=== PATIENT | female | born 1995 | race Caucasian/White ===

== ENCOUNTER 2019-03-31 01:55 | Inpatient (IN) | payer OTHER ==
[2019-03-31] MEDS ORDERED: AMPICILLIN SODIUM 2 GM VIAL ONE (05:41)
[2019-03-31] MEDS ORDERED: AMPICILLIN - 2 GM in SODIUM CHLORIDE 100 ML IVPB STA (05:45)
[2019-03-31 06:23] LABS: BASO % 0.1 % (0-2.0); EOS % 0.5 % (0-4.5); HEMATOCRIT 35.7 % (32.4-45.2); LYMPH % 10.8 % (8-40); MCH 27.6 pg (25.7-33.7); MCHC 33.6 g/dl (32.0-36.0); MEAN CELL VOLUME 82.4 fl (80-96); MONO % 4.3 % (3.8-10.2); NEUT % 84.3 % (42.8-82.8); PLATELET COUNT 235 K/MM3 (134-434); RBC 4.33 M/mm3 (3.60-5.2); RDW 14.8 % (11.6-15.6); WHITE BLOOD COUNT 12.1 K/mm3 (4.0-10.0)
[2019-03-31 06:34] LABS: INR 0.92 (0.83-1.09); PROTHROMBIN TIME (PATIENT) 10.9 SEC (9.7-13.0)
[2019-03-31 06:37] LABS: ACTIVATED PTT 28.6 SECONDS (25.2-36.5)
[2019-03-31 06:42] VITALS: BMI 30.1
[2019-03-31] MEDS ORDERED: ELECTROLYTE-148 SOLN 500 ML IV ONE (06:45)
[2019-03-31] MEDS ORDERED: LIDOCAINE HCL 1% PRESERVATIVE FREE - 30ML VIAL ONE (07:10)
[2019-03-31] MEDS ORDERED: OXYTOCIN 20 UNITS in 0.9% NS 20 UNIT/1,000 ML INFUS.BAG IV ONE ×2 (07:11→10:45)
[2019-03-31 07:15] LABS: BLOOD UREA NITROGEN 11.6 mg/dL (7-18); CALCIUM 8.8 mg/dL (8.5-10.1); CREATININE 0.5 mg/dL (0.55-1.3); POTASSIUM 3.9 mmol/L (3.5-5.1)
[2019-03-31] MEDS ORDERED: ELECTROLYTE-148 SOLN 1,000 ML IV SCH (07:45)
[2019-03-31] MEDS ORDERED: FENTANYL/BUPIVACAINE/NS/PF - PCEA - 50 ML DISP.SYRIN EP ONE (08:00)
[2019-03-31] MEDS ORDERED: NALOXONE HCL 0.4 MG/ML VIAL IVPUSH PRN (08:03)
--- NOTE | 2019-03-31 08:04 | HP ---
Past Medical History - Admission History of Present Illness: 24 yo @ 39 1/7 wks by first trimester ultrasound, EDC 04/06/2019 complicated by: 1. Obesity - Starting BMI 32 21 lb wt gain this No early GCT 1 H GCT 137 --> 3 H GTT WNL Most recent EFW: 03/10/2019 (36 wks), 6 lb 9 oz 62%ile (2989g) Patient presents with chief complaint of contractions. She reports movement, denies leakage of fluid, vaginal bleeding. History Source: Patient Limitations to Obtaining History: No Limitations - Past Medical History Cardiovascular: No: HTN Pulmonary: No: Asthma ...: 2 ...Para: 1 ...Term: 1 ...: 0 ...Spon : 0 ...Induced : 0 ...LMP: 06/25/18 ... Weeks Gestation by Dates: 39.6 ...EDC by Dates: 04/01/19 ...EDC by Sono: 04/01/19 Heme/Onc: No: Anemia - Past Surgical History Past Surgical History: Yes: None Hx Myomectomy: No Hx Transabdominal Cerclage: No - Smoking History Smoking history: Never smoked Have you smoked in the past 12 months: No - Alcohol/Substance Use Hx Alcohol Use: No History of Substance Use: reports: None - Social History ADL: Independent History of Recent Travel: No Home Medications - Allergies Allergies/Adverse Reactions: Allergies Allergy/AdvReac Type Severity Reaction Status Date / Time No Known Allergies Allergy Verified 03/31/19 04:04 - Home Medications Home Medications: Ambulatory Orders Pnv No.95/Ferrous Fum/Folic AC [ Vitamin Tablet] 1 each PO DAILY Family Medical History Family History: Denies Review of Systems - Review of Systems Constitutional: reports: No Symptoms Cardiovascular: reports: No Symptoms Respiratory: reports: No Symptoms Genitourinary: reports: No Symptoms Integumentary: reports: No Symptoms Endocrine: reports: No Symptoms Psychiatric: reports: No Symptoms Physical Exam - Maternity Vital Signs: Vital Signs Temperature 97.9 F 03/31/19 06:00 Pulse Rate 81 03/31/19 06:00 Respiratory Rate 20 03/31/19 06:00 Blood Pressure 138/76 03/31/19 06:00 O2 Sat by Pulse Oximetry (%) Constitutional: Yes: Well Nourished, No Distress, Calm Cardiovascular: Yes: Regular Rate and Rhythm Lungs: Clear to auscultation - Abdominal Exam/OB Number of Fetuses: Single Presentation: Vertex Contractions: Yes Regularity: Regular Intensity: Strong Heart Rate (range): 130 Category: I Accelerations: Non-Uniform Decelerations: None - Vaginal Exam/OB Dilatation (cm): 9 Effacement (%): 100 Amniotic Membrane Status: Ruptured Amniotic Fluid: Yes: Clear Station: -1 - Physical Exam Musculoskeletal: Yes: WNL Edema: No Psychiatric: Yes: Alert, Oriented - Labs Lab Results: CBC, BMP 03/31/19 05:40 03/31/19 05:40 PNL: B positive, antibody negative; RPR NR; HIV neg; HBs Ag neg; HCV neg; Hg Carly AA; Quad Screen WNL; Inheritest neg (05/2017); GCT/GTT as above; GBS positive Hemorrhage Risk Assessment - Risk Factors Medium Risk Factors: Yes: None High Risk Factors: Yes: None Risk Score: 1 Risk Level: Medium Risk Assessment/Plan 24 yo @ 39 + wks active labor 1. Admit to L&D 2. Routine labs collected and sent 3. GBS positive, on ampicillin per protocol 4. Will offer pain medication upon patient request 5. Will proceed with expected management
[2019-03-31] MEDS ORDERED: LIDO 2%/EPI 1:200000 PRESRVFRE (20 ML SDVIAL) ONE (08:05)
[2019-03-31] MEDS ORDERED: FENTANYL/BUPIVACAINE/NS/PF - PCEA - 50 ML DISP.SYRIN EP SCH (08:15)
[2019-03-31] MEDS ORDERED: AMPICILLIN SODIUM 1 GM VIAL ONE (08:34)
[2019-03-31] MEDS: AMPICILLIN - 1 GM in SODIUM CHLORIDE 100 ML IVPB SCH ×2 (08:56→13:56)
[2019-03-31] MEDS ORDERED: ACETAMINOPHEN 325 MG TABLET (FP) PO PRN (09:57)
[2019-03-31] MEDS ORDERED: METHYLERGONOVINE MALEATE 0.2 MG/1 ML AMP IM PRN (09:57)
[2019-03-31] MEDS ORDERED: BISACODYL 10 MG SUPP.RECT RC PRN (09:57)
[2019-03-31] MEDS ORDERED: BENZOCAINE 28 GM HEMORRHOIDAL OINTMENT TP PRN (09:57)
[2019-03-31] MEDS ORDERED: WITCH HAZEL 50% (TUCKS) 40 PAD/JAR PAD TP PRN (09:57)
[2019-03-31] MEDS ORDERED: BENZOCAINE 20% 57 GM BOTTLE TP PRN (09:57)
[2019-03-31] MEDS ORDERED: OXYTOCIN 20 UNITS in 0.9% NS 20 UNIT/1,000 ML INFUS.BAG IV SCH (10:00)
--- NOTE | 2019-03-31 10:00 | PN ---
Delivery - Delivery Vaginal Delivery: No Problems Type of Anesthesia: Epidural Episiotomy/Laceration: None EBL (cc): 500 Delivery, Single - Stages of Labor Date 1st Stage Initiatied: 03/30/19 Time 1st Stage Initiated: 22:00 Date 2nd Stage Initiated: 03/31/19 Time 2nd Stage Initiated: 09:08 Date of Delivery: 03/31/19 Time of Delivery: 09:20 Date Placenta Delivered: 03/31/19 Time Placenta Delivered: 09:25 Placenta: Yes: Spontaneous - Condition of Infant Gender: Female Position: Left, OA Total Hours ROM (Hrs/Mins): 1 hour 35 minutes - 1 Minute Total Score: 9 5 Minutes Total Score: 9 - Feeding Plan Initial Plan: Exclusive throughout hospitalization Remarks - Remarks Remarks: Patient progressed to fully dilated and at 0920 via delivered a viable female in STUART position, APGARs 9,9. Weight and length unknown at this time. Head delivered spontaneously followed by shoulders and body without difficulty. with spontaneous cry and placed on mother's abdomen. Nose and mouth was bulb suctioned. Cord was clamped and cut. Perineum and vagina examined, no lacerations noted. Mild atony noted, methergine given IM x 1 Placenta was delivered spontaneously and intact. 20 units of pitocin in 1 L IVF was given. All counts correct x 2. Mother and infant stable in LDR. EBL 500cc.
[2019-03-31] MEDS: PRENATAL VITAMINS W/ FOLIC ACID TABLET (FP) PO SCH (13:55)
[2019-03-31] MEDS: IBUPROFEN 600 MG TABLET (FP) PO PRN (18:00)
--- NOTE | 2019-04-01 08:10 | PN ---
Post Progress Note - Subjective Subjective: Patient without acute complaints. Reports tolerating oral intake without nausea or vomiting. Ambulating without dizziness. Denies fevers or chills. Pain well controlled with oral pain medication. without difficulty. Passing flatus. Post Day: 1 Type of Delivery: Vital Signs: Vital Signs Temperature 97.9 F 04/01/19 06:00 Pulse Rate 65 04/01/19 06:00 Respiratory Rate 20 04/01/19 06:00 Blood Pressure 119/60 04/01/19 06:00 O2 Sat by Pulse Oximetry (%) 100 03/31/19 11:30 Breast Exam: Yes: Soft Uterus: Yes: Fundus Firm, Fundus below umbilicus Abdomen/GI: Yes: Abdomen soft, Passing flatus, Tolerating PO. No: Abdominal Distention, Tender Lochia: Yes: Rubra Lochia, amount: Small Extremities: Yes: Calves non-tender, Edema (trace) Perineum: Yes: Intact Activity: Ambulating - Labs Labs: CBC WBC 12.1 K/mm3 (4.0-10.0) H 03/31/19 05:40 RBC 4.33 M/mm3 (3.60-5.2) 03/31/19 05:40 Hgb 12.0 GM/dL (10.7-15.3) 03/31/19 05:40 Hct 35.7 % (32.4-45.2) D 03/31/19 05:40 MCV 82.4 fl (80-96) 03/31/19 05:40 MCH 27.6 pg (25.7-33.7) 03/31/19 05:40 MCHC 33.6 g/dl (32.0-36.0) 03/31/19 05:40 RDW 14.8 % (11.6-15.6) 03/31/19 05:40 Plt Count 235 K/MM3 (134-434) D 03/31/19 05:40 MPV 9.0 fl (7.5-11.1) 03/31/19 05:40 Absolute Neuts (auto) 10.2 K/mm3 (1.5-8.0) H 03/31/19 05:40 Neutrophils % 84.3 % (42.8-82.8) H 03/31/19 05:40 Lymphocytes % 10.8 % (8-40) D 03/31/19 05:40 Monocytes % 4.3 % (3.8-10.2) 03/31/19 05:40 Eosinophils % 0.5 % (0-4.5) 03/31/19 05:40 Basophils % 0.1 % (0-2.0) 03/31/19 05:40 Nucleated RBC % 0 % (0-0) 03/31/19 05:40 Assessment/Plan 24 yo PPD # 1 s/p , afebrile, vital signs stable, doing well 1. Continue routine care. 2. Follow up AM CBC 3. Rh positive status, no rhogam indicated. 4. Encourage ambulation 5. Continue oral pain medication 6. Anticipate discharge home day #2
[2019-04-01 08:36] LABS: BASO % 0.3 % (0-2.0); EOS % 1.3 % (0-4.5); HEMATOCRIT 29.1 % (32.4-45.2); HEMOGLOBIN 9.9 GM/dL (10.7-15.3); LYMPH % 18.5 % (8-40); MCH 28.2 pg (25.7-33.7); MCHC 33.9 g/dl (32.0-36.0); MEAN CELL VOLUME 83.2 fl (80-96); MEAN PLT VOLUME 9.2 fl (7.5-11.1); MONO % 5.9 % (3.8-10.2); PLATELET COUNT 211 K/MM3 (134-434); RDW 14.4 % (11.6-15.6)
[2019-04-01] MEDS: PRENATAL VITAMINS W/ FOLIC ACID TABLET (FP) PO SCH (10:00)
[2019-04-01] MEDS: IBUPROFEN 600 MG TABLET (FP) PO PRN (15:29)
[2019-04-01] MEDS ORDERED: SENNOSIDES/DOCUSATE COMBO (SENNA PLUS) TABLET (UD) PO PRN (22:00)
[2019-04-02] MEDS: PRENATAL VITAMINS W/ FOLIC ACID TABLET (FP) PO SCH (10:21)
[2019-04-02 10:25] VITALS: BP 125/67; PULSE 78; TEMP 97.9
--- NOTE | 2019-04-02 13:07 | DS ---
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 Vital Signs: Vital Signs Temperature 97.9 F 04/02/19 10:00 Pulse Rate 78 04/02/19 10:00 Respiratory Rate 18 04/02/19 10:00 Blood Pressure 125/67 04/02/19 10:00 O2 Sat by Pulse Oximetry (%) 100 03/31/19 11:30 Constitutional: Yes: Well Nourished, No Distress, Calm Eyes: Yes: WNL, Conjunctiva Clear HENT: Yes: WNL, Atraumatic Neck: Yes: WNL, Supple Cardiovascular: Yes: WNL, Regular Rate and Rhythm Respiratory: Yes: WNL, Regular, CTA Bilaterally Gastrointestinal: Yes: WNL, Normal Bowel Sounds Renal/: Yes: WNL Pelvis: Yes: WNL External Genitalia: Yes: Normal ....Post : Yes: Uterus firm, Uterus non-tender Breast(s): Yes: WNL Musculoskeletal: Yes: WNL Extremities: Yes: WNL Integumentary: Yes: WNL Neurological: Yes: WNL, Alert, Oriented ...Motor Strength: WNL Psychiatric: Yes: WNL, Alert, Oriented Labs: CBC, BMP 04/01/19 08:05 03/31/19 05:40 Delivery - Delivery Vaginal Delivery: No Problems Type of Anesthesia: Epidural Episiotomy/Laceration: None EBL (cc): 500 Delivery, Single - Stages of Labor Date 1st Stage Initiatied: 03/30/19 Time 1st Stage Initiated: 22:00 Date 2nd Stage Initiated: 03/31/19 Time 2nd Stage Initiated: 09:08 Date of Delivery: 03/31/19 Time of Delivery: 09:20 Time Placenta Delivered: 09:25 Placenta: Yes: Spontaneous - 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 You may walk unlimited sandra of and climb stairs. You may resume driving the car when you feel safe and comfortable behind the wheel. No sexual activity as instructed. Wound care If you have a bandage, leave it on, and keep dry for 48-72 hours. After that time discard the outer bandage. If they are tapes on the skin under the out of bandage leave them in place. They will peel off in the next 7 to 10 days. Do Not Peel them off. You may shower the day after surgery. If there are tapes present on the skin, you may shower over them. Diet There are no dietary restrictions. Eat healthy, high-fiber foods. Drink 6 to 8 glasses of liquid each day. This will assist in keeping your bowels are regular. Pain management You may take Tylenol or acetaminophen or Ibuprofen (for example, Motrin, Advil etc.) from my pain prescription medication is ordered should be taken as prescribed for moderate to severe pain. Call MD for any of the following: Severe pain not relieved by medication Fever of 101 or higher Excessive bleeding or drainage on dressing Inability to urinate Referrals: Marlyn Coreas MD [Family Provider] - Disposition: HOME - Home Medications Comprehensive Discharge Medication List: Ambulatory Orders Pnv No.95/Ferrous Fum/Folic AC [ Vitamin Tablet] 1 each PO DAILY
== END 2019-04-02 14:20 | disposition home or self-care (01) | DRG 560 ==
LOC: JDEL 01:55 → JLDR 05:15 → J3N 11:51 → J3W 04-01 14:46
PROVIDERS: ADMIT Obstetrics & Gynecology; ATTEND Obstetrics & Gynecology
PROC: 10E0XZZ Delivery of Products of Conception, External Approach (ICD-10-PCS; principal; 2019-03-31)
DX: O99.824 Streptococcus B carrier state complicating childbirth (principal); Z3A.39 39 weeks gestation of pregnancy; Z37.0 Single live birth
CPT/HCPCS: 36415; 59025; 59409; 80048; 85025; 85610; 85730; 86593; 86850; 86900; 86901

== ENCOUNTER 2021-03-10 11:15 | Inpatient (IN) | payer OTHER ==
[2021-03-10] MEDS ORDERED: AMPICILLIN - 2 GM in SODIUM CHLORIDE 100 ML IVPB ONE (11:42)
[2021-03-10] MEDS ORDERED: DEXTROSE 5%-LACTATED RINGERS 1,000 ML IV SCH (11:45)
[2021-03-10] MEDS ORDERED: AMPICILLIN SODIUM 2 GM VIAL ONE (11:48)
[2021-03-10] MEDS ORDERED: SODIUM CHLORIDE 100 ML IVPB ONE (11:48)
[2021-03-10] MEDS ORDERED: PROMETHAZINE HCL 25 MG/1 ML VIAL IVPB ONE (11:53)
[2021-03-10] MEDS ORDERED: BUTORPHANOL TARTRATE 2 MG/ML VIAL IVPB ONE (11:53)
[2021-03-10] MEDS ORDERED: OXYTOCIN 20 UNITS in 0.9% NS 20 UNIT/1,000 ML INFUS.BAG IV ONE (12:18)
[2021-03-10] MEDS ORDERED: LIDOCAINE HCL 1% PRESERVATIVE FREE - 30ML VIAL ONE (12:18)
[2021-03-10 12:26] LABS: BASO % 0.1 % (0-2.0); EOS % 0.4 % (0-4.5); HEMOGLOBIN 11.4 GM/dL (10.7-15.3); LYMPH % 11.3 % (8-40); MCH 28.1 pg (25.7-33.7); MCHC 33.5 g/dl (32.0-36.0); MEAN CELL VOLUME 83.8 fl (80-96); MEAN PLT VOLUME 8.9 fl (7.5-11.1); MONO % 4.9 % (3.8-10.2); NEUT % 83.3 % (42.8-82.8); PLATELET COUNT 229 10^3/uL (134-434); RBC 4.06 M/mm3 (3.60-5.2); RDW 15.1 % (11.6-15.6); WHITE BLOOD COUNT 12.5 K/mm3 (4.0-10.0)
[2021-03-10 12:35] LABS: INR 0.94 (0.83-1.09)
[2021-03-10 12:38] LABS: ACTIVATED PTT 24.2 SECONDS (25.2-36.5)
[2021-03-10 12:42] VITALS: BMI 32.6
[2021-03-10 12:52] LABS: BLOOD UREA NITROGEN 6.6 mg/dL (7-18); CALCIUM 8.7 mg/dL (8.5-10.1)
[2021-03-10 12:53] LABS: ALBUMIN 2.8 g/dl (3.4-5.0)
[2021-03-10 12:55] LABS: CREATININE 0.4 mg/dL (0.55-1.3)
[2021-03-10] MEDS: IBUPROFEN 600 MG TABLET (FP) PO PRN ×2 (12:55→20:55)
[2021-03-10] MEDS ORDERED: IBUPROFEN 600 MG TABLET (FP) PO ONE (12:55)
[2021-03-10 12:57] LABS: BILIRUBIN,TOTAL 0.5 mg/dL (0.2-1); TOT PROT 6.4 g/dl (6.4-8.2)
[2021-03-10] MEDS ORDERED: BENZOCAINE 28 GM HEMORRHOIDAL OINTMENT TP PRN (13:05)
[2021-03-10] MEDS ORDERED: WITCH HAZEL 50% (TUCKS) 40 PAD/JAR PAD TP PRN (13:05)
[2021-03-10] MEDS ORDERED: oxyCODONE HCL 5 MG TABLET PO PRN (13:05)
[2021-03-10] MEDS ORDERED: ACETAMINOPHEN 325 MG TABLET (FP) PO PRN (13:05)
[2021-03-10] MEDS ORDERED: METHYLERGONOVINE MALEATE 0.2 MG/1 ML AMP IM PRN (13:05)
[2021-03-10] MEDS ORDERED: BENZOCAINE 20% 57 GM BOTTLE TP PRN (13:05)
[2021-03-10] MEDS ORDERED: BISACODYL 10 MG SUPP.RECT RC PRN (13:05)
[2021-03-10] MEDS ORDERED: OXYTOCIN 20 UNITS in 0.9% NS 20 UNIT/1,000 ML INFUS.BAG IV SCH (13:15)
[2021-03-10 13:48] LABS: CORD BASE EXCESS -2.3 mmol/L (0-2); CORD HCO3 22.8 mmHg (20-29); CORD PCO2 40.5 mmHg (30-78); CORD pH 7.369 (7.14-7.44)
[2021-03-10 13:50] LABS: CORD BASE EXCESS -3.3 mmol/L (0-2); CORD HCO3 22.9 mmHg (20-29); CORD pH 7.324 (7.14-7.44)
[2021-03-10 14:03] LABS: SYPHILIS W/ RPR CONF NON-REACTIVE (NONREACTIVE)
[2021-03-10 14:31] LABS: HIV INTERPRETATION NEGATIVE (NEGATIVE)
[2021-03-11 08:18] LABS: BASO % 0.4 % (0-2.0); EOS % 1.9 % (0-4.5); HEMATOCRIT 33.9 % (32.4-45.2); HEMOGLOBIN 11.2 GM/dL (10.7-15.3); LYMPH % 19.8 % (8-40); MCHC 33.1 g/dl (32.0-36.0); MEAN CELL VOLUME 84.7 fl (80-96); MEAN PLT VOLUME 9.7 fl (7.5-11.1); MONO % 5.6 % (3.8-10.2); NEUT % 72.3 % (42.8-82.8); PLATELET COUNT 221 10^3/uL (134-434); RDW 14.7 % (11.6-15.6); WHITE BLOOD COUNT 10.2 K/mm3 (4.0-10.0)
[2021-03-11] MEDS: IBUPROFEN 600 MG TABLET (FP) PO PRN ×2 (13:19→23:17)
[2021-03-11] MEDS ORDERED: SENNOSIDES/DOCUSATE COMBO (SENNA PLUS) TABLET (UD) PO PRN (22:00)
[2021-03-11 23:59] VITALS: PULSE 73
[2021-03-12 09:15] VITALS: BP 109/70; TEMP 98.1
== END 2021-03-12 13:10 | disposition home or self-care (01) | DRG 560 ==
LOC: JLDR 11:15 → J3W 16:03
PROVIDERS: ADMIT Obstetrics & Gynecology; ATTEND Obstetrics & Gynecology
PROC: 10E0XZZ Delivery of Products of Conception, External Approach (ICD-10-PCS; principal; 2021-03-10)
DX: O80 Encounter for full-term uncomplicated delivery (principal); Z3A.40 40 weeks gestation of pregnancy; Z37.0 Single live birth
CPT/HCPCS: 36415; 36600; 59409; 80053; 82803; 85025; 85610; 85730; 86762; 86780; 86850; 86900; 86901; 87340; 87389; C9803; U0003; U0005

== ENCOUNTER 2023-10-18 18:27 | Inpatient (IN) | payer OTHER ==
[2023-10-18] MEDS: ELECTROLYTE-148 SOLN 1,000 ML IV SCH (19:30)
[2023-10-18 19:48] LABS: BASO % 0.4 % (0-2.0); EOS % 0.7 % (0-4.5); HEMATOCRIT 36.4 % (32.4-45.2); HEMOGLOBIN 12.4 GM/dL (10.7-15.3); LYMPH % 16.8 % (8-40); MCH 28.6 pg (25.7-33.7); MCHC 34.1 g/dl (32.0-36.0); MEAN CELL VOLUME 83.9 fl (80-96); MEAN PLT VOLUME 9.3 fl (7.5-11.1); NEUT % 76.1 % (42.8-82.8); PLATELET COUNT 212 10^3/uL (134-434); RBC 4.34 M/mm3 (3.60-5.2); WHITE BLOOD COUNT 10.6 K/mm3 (4.0-10.0)
[2023-10-18 19:56] LABS: INR 0.97 (0.83-1.09)
[2023-10-18 19:59] LABS: ACTIVATED PTT 26.3 SECONDS (25.2-36.5)
[2023-10-18 20:20] LABS: POTASSIUM 3.6 mmol/L (3.5-5.1)
[2023-10-18 20:22] LABS: BLOOD UREA NITROGEN 7.5 mg/dL (7-18); CALCIUM 9.1 mg/dL (8.5-10.1)
[2023-10-18 20:25] LABS: CREATININE 0.5 mg/dL (0.55-1.3)
[2023-10-18] MEDS: ELECTROLYTE-148 SOLN 500 ML IV ONE (20:30)
[2023-10-18 20:34] VITALS: BMI 33.4
[2023-10-18] MEDS ORDERED: FENTANYL/BUPIVACAINE/NS/PF - PCEA - 50 ML DISP.SYRIN EP ONE (20:39)
[2023-10-18] MEDS ORDERED: OXYTOCIN 20 UNITS in 0.9% NS 20 UNIT/1,000 ML INFUS.BAG IV ONE (21:17)
[2023-10-18] MEDS ORDERED: NALOXONE HCL 0.4 MG/ML VIAL IVPUSH PRN (21:54)
[2023-10-18] MEDS: OXYTOCIN 20 UNITS in 0.9% NS 20 UNIT/1,000 ML INFUS.BAG IV SCH (22:22)
[2023-10-18] MEDS ORDERED: oxyCODONE HCL 5 MG TABLET PO PRN (22:27)
[2023-10-18] MEDS ORDERED: BENZOCAINE 28 GM HEMORRHOIDAL OINTMENT TP PRN (22:27)
[2023-10-18] MEDS ORDERED: WITCH HAZEL 50% (TUCKS) 40 PAD/JAR PAD TP PRN (22:27)
[2023-10-18] MEDS ORDERED: BISACODYL 10 MG SUPP.RECT RC PRN (22:27)
[2023-10-18] MEDS ORDERED: METHYLERGONOVINE MALEATE 0.2 MG/1 ML AMP IM PRN (22:27)
[2023-10-19] MEDS: IBUPROFEN 600 MG TABLET (FP) PO PRN (02:11)
[2023-10-19] MEDS: FENTANYL/BUPIVACAINE/NS/PF - PCEA - 50 ML DISP.SYRIN EP SCH (02:48)
[2023-10-19 02:58] VITALS: RESP 18
[2023-10-19 09:05] LABS: BASO % 0.3 % (0-2.0); EOS % 0.8 % (0-4.5); HEMATOCRIT 33.3 % (32.4-45.2); HEMOGLOBIN 11.6 GM/dL (10.7-15.3); LYMPH % 15.1 % (8-40); MCH 28.9 pg (25.7-33.7); MCHC 34.8 g/dl (32.0-36.0); MEAN CELL VOLUME 83.1 fl (80-96); MEAN PLT VOLUME 9.2 fl (7.5-11.1); MONO % 6.3 % (3.8-10.2); NEUT % 77.5 % (42.8-82.8); PLATELET COUNT 185 10^3/uL (134-434); RBC 4.01 M/mm3 (3.60-5.2); RDW 15.3 % (11.6-15.6)
[2023-10-19] MEDS: PRENATAL VITAMINS W/ FOLIC ACID TABLET (FP) PO SCH (10:15)
[2023-10-19] MEDS: BENZOCAINE 20% 57 GM BOTTLE TP PRN (10:19)
[2023-10-19] MEDS: ACETAMINOPHEN 325 MG TABLET (FP) PO PRN (13:20)
[2023-10-19] MEDS ORDERED: SENNOSIDES/DOCUSATE COMBO (SENNA PLUS) TABLET (UD) PO PRN (22:00)
[2023-10-19 22:41] VITALS: TEMP 98.4
[2023-10-20 08:39] VITALS: BP 136/71; PULSE 67
== END 2023-10-20 11:00 | disposition home or self-care (01) | DRG 560 ==
LOC: JDEL 18:27 → JLDR 19:10 → J3W 10-19 01:52
PROVIDERS: ADMIT Obstetrics & Gynecology; ATTEND Obstetrics & Gynecology
PROC: 10E0XZZ Delivery of Products of Conception, External Approach (ICD-10-PCS; principal; 2023-10-18)
DX: O99.214 Obesity complicating childbirth (principal); Z3A.39 39 weeks gestation of pregnancy; Z37.0 Single live birth
CPT/HCPCS: 36415; 59409; 80048; 85025; 85610; 85730; 86850; 86900; 86901; 87340